=== PATIENT | female | born 1990 ===

== ENCOUNTER 2023-08-22 09:00 | Outpatient (RCR) | payer OTHER, SELFPAY ==
--- NOTE | 2023-07-02 10:49 | OPREHPOC ---
Outpatient Therapy Plan of Care This is a Multidisciplinary Plan of Care that may contain components documented by all disciplines (PT, OT, and ST.) PT Problem 1 PT Problem #1 Knowledge Deficit PT Goal 1 Goal 1* indep with HEP 2* correct body mechanics with lifting demonstrated during session PT Problem 2 PT Problem #2 Pain PT Goal 1 Goal 1* pt report pain at worst of 7/10 2* Oswestry self assessment functional score of 24% limitation in activity level 3* pt report with sleeping, awaken 1x/night due to pain PT Problem 3 PT Problem #3 Impaired Strength PT Goal 1 Goal increase trunk and LE strength, to improve position of spine and support to spine 1* pt perform 20 reps of R and L mat exercises 2* single leg standing R 10 seconds 3* single leg standing L 10 seconds
--- NOTE | 2023-07-02 10:50 | PTOPEVAL1 ---
Assessment and note entered by Ama Meeks, PT Evaluation Information Assessment Status Evaluation Diagnosis chronic back pain Onset December 2022 Subjective Information chronic issues with back pain; comes and goes; no trauma or recent injury to back, just pain got worse; have orders for lumbar xrays, to have done this week; have not had PT for her back; Activity: does not work outside of home; due to back pain--cannot lift heavy things in the house, limited sitting and standing times; Reported Pain Level Pain Score Self Report Additional Pain Score Comments pain range 5-10/10 in the past week; deep, pain, pressure in back, sometimes sharp; increase pain: reported standing/walking activity with home tasks 5 minutes then have to sit down; sitting tolerance 30 min decrease pain: heat, naproxen, muscle relaxers; Oswestry self assessment 36% limitation in activity level with sleeping, awaken 3x/night due to pain; with drinking something, can feel it in my back; Assessment PT Clinical Summary Ciro has the diagnosis of chronic back pain. It does not radiate into LE's. She reports issues with back pain for a long time and bilateral knee pain, but has never had PT treatment. Self assessment Oswestry score of 36% limitation in activity-- sitting, standing/walking and sleeping is limited due to pain. With the evaluation: she has poor standing position of trunk and hips; increase pain with: standing trunk flexion > extension and supine L SLR; weakness throughout trunk and LE's with mat exercises and single leg standing is 2-3 seconds only with decreased control and stability; Discussed aquatic therapy and exercises with pt; she likes water, but is not interested in doing water exercises here, but stated she lives near the [facility] and is going to look into water classes there with her sister. Skilled PT services are indicated for modalities to decrease pain; therapeutic exercises to increase strength of her
--- NOTE | 2023-08-22 09:46 | PTOPDC ---
Assessment and note entered by Ama Meeks, PT Discharge Information Assessment Status Discharge Diagnosis chronic back pain Onset December 2022 Subjective Information therapy helped my back pain, was all good until lifted that case of water, then hurt again; doing the exercises at home and they help; feel like improved and do not need any more therapy; Reported Pain Level Pain Score Self Report Additional Pain Score Comments pain range in the past week 0-8/10; increase to 8/10 with lifting case of water decrease pain: heating, stretching, muscle relaxer helps with sleeping increase pain: lie flat with legs straight out with sleeping, awaken due to pain 2-3 x/night Assessment PT Clinical Summary Ciro has received 7 PT sessions. Compared to the initial evaluation: improved with pain range 5-10/10 to 0-8/10; sleeping tolerance awaken 3x to 2-3x/night due to pain; self assessment Oswestry from 36% to 26% limitation; LE strength with mat exercises, to 15-20 reps; only supine motion of L hip flexion increases back pain; able to lift with bilateral UE 10# box floor/waist height with correct body mechanics and pain does not increase; education for HEP and body mechanics with lifting; The goals were partially met. Discharge PT services. She is to continue with HEP and monitor position of back. Plan of Care PT Services Indicated No
== END 2023-08-22 10:17 | disposition home or self-care (01) ==
LOC: ANHPT 09:00
PROVIDERS: PCP Physician Assistant; Visit Provider Physician Assistant
DX: G89.29 Other chronic pain (principal)
CPT/HCPCS: 97014; 97110; 97140; 97161; 97530; G0283